=== PATIENT | male | born 1950 | race Caucasian/White ===

== ENCOUNTER 2016-04-02 07:30 | Inpatient (IN) | payer OTHER ==
--- NOTE | 2016-04-01 09:05 | HP ---
DATE OF CLINIC: 03/25/2016 PORFIRIO AMAYA : 1950 PLANNED PROCEDURE: Left Total Knee Arthroplasty DATE OF SURGERY: April 02, 2016 SURGEON: Sampson Cabello M.D. HISTORY OF PRESENT ILLNESS Porfirio Amaya is a 65 year old male. * Medication list reviewed with patient allergy list reviewed with patient. * Tried NSAIDS Aleve/Meloxcam PRN * Tried Injections 03/21/14& 03/23/15 * Has not tried Physical Therapy 65-year-old male that we have seen previously for left knee pain due to known osteoarthritis. He has had steroid injections a couple of different times most recently in March of 2015, which gave him adequate relief and allowed him to maintain his desired level of activity, but at this point he returns with a statement that he has activity limiting pain that is keeping him from being able to do both work and recreational activities. He rates the pain as bad as a 7-8/10. He states that he is now sleeping in a different room and using a walker at night just so he can get up and get to the restroom during the night and that his level of activity is just completely unacceptable. He has had occasional giving-way of the knee, but has not had any significant falls and he has had no other history of trauma. His symptoms have been around for about 2 years. After discussion and review of treatment options, both operative and non-operative, he has elected to proceed with surgery and presents today preoperatively. No changes to his past medical or surgical history. SOCIAL HISTORY Behavioral: Quit smoking. Smoking status: Former smoker. REVIEW OF SYSTEMS No recent constitutional symptoms to include fevers and chills. No recent cardiovascular symptoms to include chest pain or palpitations. No recent respiratory symptoms to include shortness of breath or recent infections. PHYSICAL FINDINGS * Vitals taken 03/25/2016 03:05 pm BP-Sitting R 121/72 mmHg Pulse Rate-Sitting 84 bpm Temp-Oral 98 F Height 68.5 in Weight 203 lbs Body Mass Index 30.4 kg/m2 Body Surface Area 2.07 m2 Pain Level 3 Ears, Nose, Throat: * ENT: normal. Lungs: * Clear to auscultation. Cardiovascular: Heart Rate and Rhythm: * Normal. Abdomen: * Normal. Neurological: Motor: * Dominant Hand = Right Hand. Patient is a well-developed, well-nourished male in no acute distress. He is awake, alert and conversant throughout the encounter. CARDIOVASCULAR: Intact peripheral pulses on bilateral lower extremities. No significant edema on inspection of bilateral lower extremities. NEUROLOGIC: Patient had intact coordinated composite motion of the bilateral lower extremities and sensation intact to light touch in all distributions of bilateral lower extremities. PSYCHIATRIC: Patient was oriented to person, place and time and displayed appropriate mood and affect during the encounter. SKIN: Exam of the skin on bilateral lower extremities showed no significant scars, lesions, rashes or masses. FOCUSED MUSCULOSKELETAL EXAM: Patient ambulates with some mild antalgia on the left side. Normal resting station of the hips, knees and ankles. His left knee shows a mild effusion. No erythema or ecchymosis. He has tenderness to palpation over the medial and lateral jointlines. His ROM is from full extension to about 120 degrees of flexion. He is stable to varus stress. He's got mild valgus pseudolaxity with a firm endpoint. He has negative anterior and posterior drawer and a negative Verna and pivot shift test. He is able to perform a SLR. He has a midline patella with negative patellar grind. He has 5/5 strength in flexion and extension at the knee. He has a warm and well perfused leg distally with intact sensation and normal resting tone. IMAGING Review of his xrays from nearly a year ago now shows tricompartmental arthrosis with extensive osteophyte formation, varus malalignment and subchondral sclerosis and some small subchondral cysts. See radiologist's interpretation for additional details. ASSESSMENT 65-year-old male with activity related tricompartmental arthrosis that is no longer responding to non-operative measures. PREVIOUS TESTS * Test: URINALYSIS Report Date: 03/12/2016 GLUCOSE 1+ PH,URINE 6.0 SPEC. GRAVITY 1.020 KETONE NEGATIVE NITRITE NEGATIVE BLOOD NEGATIVE BILIRUBIN NEGATIVE APPEARANCE CLEAR PROTEIN NEGATIVE COLOR YELLOW LEUK ESTERASE NEGATIVE UROBILINOGEN NORMAL * Test: CBC NO DIFF Report Date: 03/12/2016 WBC 5.6 10*3/mL MCV 92.0 fL RBC 4.65 10*6/uL Low MCH 31.2 pg High MCHC 33.9 g/dL RDW 12.6 % PLATELET COUNT 212 10*3/mL HCT 42.8 % HGB 14.5 g/L * Test: COMPREHENSIVE METABOLIC PANEL Report Date: 03/12/2016 ALT/SGPT 20 U/L ALBUMIN 4.6 g/dL ALB/GLOB RATIO 1.9 BUN 19 mg/dL BUN/CREAT RATIO 24 High CALCIUM 9.9 mg/dL GLUCOSE 245 mg/dL High CREATININE 0.8 mg/dL SODIUM 139 meq/L POTASSIUM 4.5 meq/L CHLORIDE 102 meq/L CARBON DIOXIDE 26 meq/L ANION GAP 16 meq/L TOT PROTEIN 7.0 g/dL GLOBULIN 2.4 g/dL BILI,TOTAL 0.6 mg/dL AST/SGOT 18 U/L ALK PHOSPHATASE 47 U/L GFR 97 High * Test: PROTHROMBIN TIME Report Date: 03/12/2016 PROTIME 9.7 s INR 0.92 * Test: PARTIAL THROMBOPLASTIN TIME Report Date: 03/12/2016 APTT 24.4 s Low * Test: MRSA SCREEN Report Date: 03/13/2016 MRSA SCREEN NEGATIVE * Test: MSSA SCREEN Report Date: 03/13/2016 MSSA SCREEN NEGATIVE FOR STAPHYLOCOCCUS AUREUS THERAPY * Patient not eligible for fall risk assessment. PLAN * Unilateral primary osteoarthritis, left knee Physical Therapy: *Other Instructions: Left total knee rehab DOS: 04/02/16 Schedule physical therapy week of 04/07/16 TBS with [facility] [place] OxyCONTIN 10 MG T12A, Take 1 tablet by mouth every12 hours for baseline pain control, 10 days, 0 refills OxyCODONE HCl 5 MG TABS, Take 1-2 tablets by mouth every 4 hours as needed for severe breakthrough pain, 14 days, 0 refills TraMADol HCl 50 MG TABS, Take 1-2 tablets by mouth every 6 hours as needed for moderate breakthrough pain, 14 days, 0 refills * Total knee arthroplasty -Left SURGICAL CONSENT We have discussed surgical options including left TKA and non-operative management. The patient was counseled in detail regarding the diagnosis, treatment options available, prognosis of each treatment option and the potential risks and complications. The risks of surgery include, but are not limited to, anesthetic , neurovascular complications, pulmonary embolism, deep vein thrombosis, wound dehiscence, failure of any or all of the discussed procedures, infection of the joint or surrounding soft tissue, need for revision surgery, chronic pain, limitations in activities of daily living, inability to return to work, and loss of normal range of motion or functional use of the extremity. There is the possibility of failure over time that may require additional operative or nonoperative treatment. The patient acknowledged that there are a number of perioperative risks not mentioned here and would still like to proceed. The patient is aware of and understands these risks, and wishes to proceed with the proposed surgical procedure and other procedures as indicated at the time of surgery. We will have the patient see their PCP for a preoperative medical risk assessment. The preoperative instructions were reviewed with the patient and all questions were answered. PB/sg
[~2016-04-02 07:30] MED LIST: CELECOXIB 200 MG CAPSULE PO ONE; CLINDAMYCIN 600 MG PREMIX 50 ML IV PRN; CLONIDINE HCL 0.1 MG/24 HR (7 DAY PATCH) TD SCH; FAMOTIDINE 20 MG TABLET PO ONE; GABAPENTIN 600 MG TABLET PO ONE; ONDANSETRON 4 MG/2ML 2 ML VIAL IV ONE; OXYCODONE HCL 10 MG TAB.SR PO ONE; TRAMADOL HCL 50 MG TABLET PO ONE
[2016-04-02] MEDS ORDERED: IV START KIT ONE (07:46)
[2016-04-02] MEDS ORDERED: SODIUM CHLORIDE 0.9% 1,000 ML ONE (07:47)
[2016-04-02] MEDS ORDERED: CLINDAMYCIN 600 MG PREMIX 50 ML IV ONE (07:47)
[2016-04-02] MEDS ORDERED: OXYCODONE HCL 10 MG TAB.SR PO ONE (07:48)
[2016-04-02] MEDS ORDERED: TRAMADOL HCL 50 MG TABLET ONE (07:48)
[2016-04-02] MEDS ORDERED: CLONIDINE HCL 0.1 MG/24 HR (7 DAY PATCH) TD ONE (07:49)
[2016-04-02] MEDS ORDERED: ONDANSETRON 4 MG/2ML 2 ML VIAL ONE ×2 (07:49→10:29)
[2016-04-02] MEDS ORDERED: FAMOTIDINE 20 MG TABLET ONE (07:49)
[2016-04-02] MEDS ORDERED: GABAPENTIN 600 MG TABLET ONE (07:49)
[2016-04-02] MEDS ORDERED: CELECOXIB 200 MG CAPSULE ONE (07:50)
[2016-04-02] MEDS ORDERED: MIDAZOLAM HCL 5 MG/5 ML VIAL ONE (08:20)
[2016-04-02] MEDS ORDERED: FENTANYL 100 MCG/2 ML VIAL ONE (08:20)
[2016-04-02] MEDS ORDERED: SPINAL PROCEDURAL TRAY 1 EACH ONE (08:22)
[2016-04-02] MEDS ORDERED: NERVE BLOCK PROCEDURAL TRAY 1 EACH ONE (08:22)
[2016-04-02] MEDS ORDERED: ROPIVACAINE 0.2% 20 ML VIAL ONE (08:22)
[2016-04-02] MEDS ORDERED: BUPIVACAINE 0.25% (MDV) 20 ML in SODIUM CHLORIDE 0.9% FLUSH 20 ML IF PRN (09:50)
[2016-04-02] MEDS ORDERED: POLYMYXIN B SULFATE 500,000 UNITS, BACITRACIN 25,000 UNITS in SODIUM CHLORIDE 3 L IRRIG... IR PRN (09:50)
[2016-04-02] MEDS ORDERED: TRANEXAMIC ACID 1,000 MG in SODIUM CHLORIDE 0.9% 100 ML IV PRN (09:50)
[2016-04-02] MEDS ORDERED: BUPIVACAINE 0.25% (MDV) 24 ML, MORPHINE SULFATE 8 MG, EPINEPHRINE 0.3 MG in SODIUM CHLO... IF PRN (09:50)
[2016-04-02] MEDS ORDERED: EPHEDRINE SULFATE UD SYR 25 MG 25 MG/5 ML SYRINGE IV ONE (10:08)
[2016-04-02] MEDS ORDERED: KETAMINE HCL UD SYRINGE 100 MG/2 ML IV ONE (10:08)
[2016-04-02] MEDS ORDERED: PROPOFOL 20 ML IV ONE ×4 (10:29→10:57)
[2016-04-02] MEDS ORDERED: PHENYLEPHRINE 10 MG/1 ML (1%) VIAL ONE (10:30)
[2016-04-02] MEDS ORDERED: HYDROMORPHONE HCL 1 MG/ML SYRINGE IV PRN (11:05)
[2016-04-02] MEDS ORDERED: NALOXONE HCL 0.4 MG/ML VIAL IV PRN (11:05)
[2016-04-02] MEDS ORDERED: FENTANYL 100 MCG/2 ML VIAL IV PRN (11:05)
[2016-04-02] MEDS ORDERED: PROMETHAZINE HCL 25 MG/ML VIAL IM PRN (11:05)
[2016-04-02] MEDS ORDERED: ATROPINE SULFATE 0.4 MG/1 ML VIAL IV PRN (11:05)
[2016-04-02] MEDS ORDERED: LACTATED RINGERS 1,000 ML IV SCH (11:15)
--- NOTE | 2016-04-02 12:02 | PCMBPN ---
Brief Post Op Note: Date of Procedure: 04/02/16 Start Time: 1030 Preoperative Diagnosis: 1. left knee osteoarthritis Postoperative Diagnosis: 1. Same Procedure: left total knee arthroplasty Surgeon: Sampson Cabello MD Assist: Rocky Rai PA-C Anesthesia: Varun Cortez Findings: as above Condition: stable to PACU Complications: none IV Fluids: 3100 mLs of LR Urine Output: 200 mLs Estimated Blood Loss: 25 mLs Tourniquet Time: 33 min at 250 mm Hg Specimens: none Implants: DePuy Attune 8PS femur, 8RP tibia, 5mm insert, 38 anatomic patella Drains: none Sampson Cabello MD
[2016-04-02] MEDS ORDERED: ON-Q PUMP/ROPIVACAINE 0.2% 450 ML ONE (12:12)
[2016-04-02] MEDS: ON-Q PUMP/ROPIVACAINE 0.2% 450 ML in PREMIX BAG 1 EACH NB PRN (12:27)
--- NOTE | 2016-04-02 12:58 | RAD ---
Exam: Two-view left knee COMPARISON: 03/20/2015 INDICATION: Postop left TKA. Findings: AP and crosstable lateral views of the left knee were obtained. There has been total left knee arthroplasty. Alignment has improved. No pericomponent fracture is identified. Skin lydia are present. IMPRESSION: Expected postoperative appearance following total left knee arthroplasty.
[2016-04-02] MEDS ORDERED: CALCIUM CARBONATE 500 MG TAB.CHEW PO PRN (13:04)
[2016-04-02] MEDS ORDERED: ONDANSETRON 4 MG/2ML 2 ML VIAL IV PRN (13:04)
[2016-04-02] MEDS ORDERED: TRAZODONE HCL 50 MG TABLET PO PRN (13:04)
[2016-04-02] MEDS ORDERED: SODIUM CHLOR 0.9% w 40mEq KCL 1,000 ML IV SCH (13:04)
[2016-04-02] MEDS ORDERED: HYDROXYZINE PAMOATE 25 MG CAPSULE PO PRN (13:04)
[2016-04-02] MEDS ORDERED: HYDROMORPHONE HCL 0.5 MG/0.5 ML SYRINGE IV PRN (13:04)
[2016-04-02] MEDS ORDERED: KETOROLAC TROMETHAMINE 30 MG/ML 1 ML VIAL IV PRN (13:04)
[2016-04-02] MEDS ORDERED: TRAMADOL HCL 50 MG TABLET PO PRN (14:00)
[2016-04-02] MEDS: OXYCODONE HCL 5 MG TABLET PO PRN (16:09)
[2016-04-02 16:24] VITALS: BMI 29.8
[2016-04-02] MEDS ORDERED: PUMP TUBING ONE (16:56)
[2016-04-02] MEDS: ACETAMINOPHEN 500 MG TABLET PO SCH ×2 (17:45→23:03)
[2016-04-02] MEDS ORDERED: NS/Potassium Chlor 20 mEq 1,000 ML IV SCH (17:45)
[2016-04-02] MEDS: CLINDAMYCIN 600 MG PREMIX 600 MG in Premix (D5W) 50 ml 1 EACH IV SCH (18:03)
[2016-04-02] MEDS ORDERED: ATORVASTATIN CALCIUM 10 MG TABLET PO SCH (20:34)
[2016-04-02] MEDS: ASCORBIC ACID 500 MG TABLET PO SCH (21:07)
[2016-04-02] MEDS: DOCUSATE SODIUM 100 MG CAPSULE PO SCH (21:07)
[2016-04-02] MEDS: OXYCODONE HCL 10 MG TAB.SR PO SCH (21:07)
[2016-04-02] MEDS: INSULIN ASPART (DOSE) 100 UNITS/1 ML SUB-Q PRN (21:11)
[2016-04-03] MEDS: CLINDAMYCIN 600 MG PREMIX 600 MG in Premix (D5W) 50 ml 1 EACH IV SCH (03:29)
[2016-04-03] MEDS: ACETAMINOPHEN 500 MG TABLET PO SCH ×3 (05:04→16:58)
[2016-04-03] MEDS: NS/Potassium Chlor 20 mEq 1,000 ML IV SCH ×2 (06:27→15:21)
[2016-04-03 07:08] LABS: HEMOGLOBIN 10.3 gm/l (14.0-18.0); MEAN CELL VOLUME 94.2 fl (80.0-94.0); MEAN CORPUSCULAR HEMOGLOBIN 31.3 pg (27.0-31.0); MEAN CORPUSCULAR HGB CONC 33.2 g/dl (33.0-37.0); RED CELL DISTRIBUTION WIDTH 12.2 % (11.5-14.5)
[2016-04-03] MEDS ORDERED: REMOVE PATCH 1 EACH UNIT TD SCH (07:30)
[2016-04-03] MEDS ORDERED: PSEUDOEPHEDRINE HCL 30 MG TABLET PO PRN (07:58)
--- NOTE | 2016-04-03 08:12 | PDOC43 ---
- Subjective Findings: POD1 Left TKA. Patient C/O of facial sinus pressure/congestion and was taking Sudafed bid prior to surgery, requesting order to take while in hospital. Subjective: Reports Pain Tolerable, Denies Chest Pain, Denies Shortness of Breath - Objective Vital Signs Temperature 97.5 F 04/03/16 04:00 Pulse Rate 62 04/03/16 04:00 Respiratory Rate 20 04/03/16 04:00 Blood Pressure 97/57 04/03/16 04:00 O2 Saturation by Pulse Oximetry 96 04/03/16 04:00 Oxygen Delivery Method Room Air Oxygen Flow Rate 0 Laboratory 04/03/16 06:10 04/03/16 06:10 04/03/16 04/03/16 04/02/16 07:21 06:10 21:05 RBC 3.29 L MCV 94.2 H MCH 31.3 H Estimated GFR 97 H POC Capillary Glucose 121 H 219 H Calcium 8.0 L Active Medication Orders Category Date Time Status Acetaminophen [Tylenol] Med 04/02/16 13:04 Active 1,000 mg PO Q6H Ascorbic Acid [Vitamin C] Med 04/02/16 21:00 Active 500 mg PO BID Aspirin (Enteric Coated) [Ecotrin] Med 04/03/16 09:00 Active 325 mg PO DAILY Atorvastatin Calcium [Lipitor] Med 04/02/16 20:34 Active 20 mg PO QPM Bisacodyl [Dulcolax] Med 04/05/16 11:58 Active 10 mg WI DAILY PRN Calcium Carbonate [Tums] Med 04/02/16 13:04 Active 1,000 - 2,000 mg PO Q2H PRN Docusate Sodium [Colace] Med 04/02/16 21:00 Active 100 mg PO BID Hydromorphone HCl [Dilaudid] Med 04/02/16 13:04 Active 0.5 mg IV Q1H PRN Hydroxyzine Pamoate [Vistaril] Med 04/02/16 13:04 Active 25 - 50 mg PO Q4H PRN Insulin Aspart (Dose) [Novolog (Dose)] Med 04/02/16 20:25 Active See Protocol SUB-Q WM/BEDTIME PRN Ketorolac Tromethamine [Toradol] Med 04/02/16 13:04 Active 30 mg IV Q6H PRN Lisinopril [Prinivil] Med 04/03/16 09:00 Active 20 mg PO DAILY Magnesium Hydroxide [Milk of Magnesia] Med 04/03/16 11:58 Active 30 ml PO DAILY PRN Multivitamins [One-A-Day] Med 04/03/16 09:00 Active 1 tab PO DAILY NS/Potassium Chlor 20 mEq 1,000 ml Med 04/03/16 04:00 Active IV 100 mls/hr Ondansetron 4 mg/2ml Vial [Zofran] Med 04/02/16 13:04 Active 4 - 6 mg IV Q6H PRN Oxycodone HCl [Roxicodone] Med 04/02/16 13:04 Active 5 - 10 mg PO Q4H PRN Oxycodone Sr [Oxycontin] Med 04/02/16 21:00 Active 10 mg PO Q12HR Pseudoephedrine HCl [Sudafed] Med 04/03/16 07:58 Ordered 30 mg PO BID PRN Remove Patch Med 04/03/16 11:58 Once 1 each TD X1 ONE Sodium Chloride 0.9% Flush [Normal Saline 10ml Flush] Med 04/02/16 13:04 Active 10 - 50 ml IV PRN PRN Sodium Chloride 0.9% Flush [Normal Saline 10ml Flush] Med 04/02/16 17:00 Active 10 ml IV Q8HR Tramadol HCl [Ultram] Med 04/02/16 14:00 Active 50 mg PO Q6H PRN Trazodone HCl [Desyrel] Med 04/02/16 13:04 Active 25 mg PO BEDTIME PRN Intake and Output 04/01/16 04/02/16 04/03/16 23:59 23:59 23:59 Intake Total 1480 2312 Output Total 200 1600 Balance 1280 712 General: Afebrile Lungs: Normal Air Movement Skin: Normal Color, Warm, Dry - Left Lower Extremity Incision: Dressing Clean/Dry/Intact, No Dressing Saturated Motor: Extensor Hallucis Longus: 5/5, Tibialis Anterior: 5/5, Gastrocnemius: 5/5 , Peroneals: 5/5 Gross Sensation to Light Touch: Present: Deep Peroneal Nerve, Superficial Peroneal Nerve - Problems (1) Status post total left knee replacement Status: Acute (2) Common cold virus Status: Acute - Additional Comments POD1 Left TKA, doing well. Denies dizziness or lightheadedness. Patient has a cold and c/o of sinus congestion and requesting Sudafed while in hospital. 1. Physical Therapy: WBAT with [facility], Mobilization, probable discharge home today if does well with PT. 2. Pain Control: Multimodal pain control as needed. 3. DVT Prophylaxis: ASA 325mg daily, mobilization. 4. Disposition: Possible discharge home today or tomorrow. 5. Medical Issues: Patient has a cold with sinus congestion treated prior to surgery with Sudafed bid, will continue while in hospital. Otherwise nothing new.
[2016-04-03] MEDS: OXYCODONE HCL 10 MG TAB.SR PO SCH (08:42)
[2016-04-03] MEDS: ASCORBIC ACID 500 MG TABLET PO SCH (08:43)
[2016-04-03] MEDS: DOCUSATE SODIUM 100 MG CAPSULE PO SCH (08:43)
[2016-04-03] MEDS: ON-Q PUMP/ROPIVACAINE 0.2% 450 ML in PREMIX BAG 1 EACH NB PRN (08:44)
[2016-04-03] MEDS ORDERED: MULTIVITAMINS 1 TAB TABLET PO SCH (09:00)
[2016-04-03] MEDS ORDERED: ASPIRIN (ENTERIC COATED) 325 MG TABLET.EC PO SCH (09:00)
[2016-04-03] MEDS ORDERED: LISINOPRIL 20 MG TABLET PO SCH (09:00)
[2016-04-03] MEDS: REMOVE PATCH 1 EACH UNIT TD ONE ×2 (10:36→13:39)
[2016-04-03] MEDS ORDERED: MAGNESIUM HYDROXIDE 30 ML UDCUP PO PRN (11:58)
[2016-04-03 15:57] VITALS: BP 93/56
--- NOTE | 2016-04-03 16:18 | PDOC5 ---
ADMIT DATE: 04/02/16 DISCHARGE DATE: 04/03/16 ADMISSION DIAGNOSES: left knee osteoarthritis PROCEDURES PERFORMED THIS HOSPITALIZATION: left total knee arthroplasty SURGEON:Sampson Cabello MD CONSULTATIONS: PT/OT/Care Mgmt/Hospitalist BRIEF HISTORY:This is a 65 year old male patient with activity-limiting left knee osteoarthritis which has failed to respond adequately to a course of nonoperative measures. After a discussion of the risks, benefits, and alternatives of ongoing therapies, patient elected to proceed with left total knee arthroplasty. The patient underwent standard preoperative clearance and education, and presented to the hospital on the scheduled date for surgery. BRIEF HOSPITAL COURSE: Patient tolerated the procedure without complication and was admitted postoperatively for observation, pain control, and rehabilitation. Patient had an uncomplicated hospital course; see daily notes for details. On POD#1 patient met all criteria for discharge and was discharged home with family assistance. Follow-up appointments for outpatient Physical Therapy and Orthopedics were provided at the time of discharge. Patient restarted preoperative medications, and received prescriptions for postoperative pain medications, a stool softener, and DVT prophylaxis. Sampson Cabello MD - Discharge Plan Additional Instructions: PROCEDURE: Left total knee arthroplasty (replacement) 1.) Dressings: may remove dressings on POD#4 and shower normally, let water run over incision and pat dry, but do not submerge or scrub incision. Cover with clean dressing and then change dressing every 2 days until completely dry. 2.) Activity: may bear weight as tolerated with assistive device as needed, brace in place at all times for first 6 weeks. Outpatient PT as previously scheduled. Daily exercises as instructed by PT. 3.) Medications: a.) Oxycontin: long-acting pain medication taken morning and evening for 10 days, no refills b.) Tramadol: as-needed pain medication for mild to moderate breakthrough pain (call for refills 3-4 days before running out) c.) Oxycodone: as-needed pain medication for severe breakthrough pain (call for refills 3-4 days before running out) d.) Aspirin: blood thinner to reduce risk of clots, 325 mg taken daily for 30 days e.) Colace: stool softener to help prevent constipation, taken twice a day as long as you are on narcotics; if you have not had a bowel movement by Thursday , get [id number] Magnesium Citrate from [facility] or [facility], and use per instructions twice a day until constipation resolves. 4.) Followup: April 14 at 9:45 AM with my PA, Rocky Rai at [facility]. Call office to confirm appt time and location. 5.) Questions: call my office with any questions or concerns. Go to ED or call 911 for any acute changes in health status or emergencies. Sampson Cabello MD Follow-Up: PT, [facility] [Other] - 04/07/16 10:00 am Sampson Cabello MD [Staff Physician] - 05/06/16 10:30 am Edward Rai PA [Physician Health Psychologist] - 04/14/16 9:45 am
[2016-04-03] MEDS: INSULIN ASPART (DOSE) 100 UNITS/1 ML SUB-Q PRN (16:34)
[2016-04-03] MEDS: OXYCODONE HCL 5 MG TABLET PO PRN (16:58)
--- NOTE | 2016-04-04 10:33 | OP ---
Samir SWAN : 1950 [id number] DATE OF SURGERY: April 02, 2016 PREOPERATIVE DIAGNOSIS: Left knee osteoarthritis. POSTOPERATIVE DIAGNOSIS: Left knee osteoarthritis. PROCEDURE PERFORMED: LEFT TOTAL KNEE ARTHROPLASTY. SURGEON: Sampson Cabello M.D. ADMINISTRATIVE UNDERWRITER: Edward Rai P.A.-C. SPECIMENS: No material was sent to the laboratory. ESTIMATED BLOOD LOSS: 25 mL. INTRAVENOUS FLUIDS: 3100 mL of crystalloid. URINE OUTPUT: 200 mL. TOURNIQUET TIME: 33 minutes at 300 mmHg. IMPLANTS: DePuy Attune size 8 posterior stabilized femur, size 8 rotating platform tibia, a 5 mm insert and a 38 mm anthropic patella. DRAINS: No drains. INDICATIONS: This is a a [id number] male with history and physical exam and radiographic findings consistent with left knee osteoarthritis. The patient has undergone a course of nonoperative measures without adequate relief of their symptoms. They desire definitive management in the form of a total knee arthroplasty. Risks, benefits and alternatives were discussed at length with the patient and they have elected to proceed. Preoperative clearances were performed and the patient was scheduled for surgery at the first available convenience. DESCRIPTION OF PROCEDURE: The patient was identified in the preoperative holding area where they were marked with indelible marker by the operating surgeon. The patient underwent ultrasound guided adductor canal block by the anesthesia provider. Patient was then taken to the operating room where they underwent a spinal anesthetic and was positioned supine on the operating room table. All bony prominences were padded and a well padded pre-calibrated nonsterile tourniquet was placed on the left upper thigh. Patient received perioperative antibiotics. The patient was prepped and draped in the usual sterile fashion for surgery. An operative time out was performed and confirmed by all members of the operative team. The leg was elevated and exsanguinated using an Esmarch bandage and the tourniquet was inflated at 300 mmHg. A standard anterior approach to the knee was utilized. Dissection was carried down to the fascia overlying the quadriceps and patellar tendons. A medial peripatellar arthrotomy was created. The infrapatellar and suprapatellar fat pads were excised along with medial and lateral menisci and the ACL and PCL. At this point the tourniquet was deflated. Retractors were placed to protect the collateral ligaments and the patella was slid laterally. The TruMatch guide for the femur was brought onto the field and pinned in place. This was exchanged for our distal femoral cut block. We confirmed our resection levels and then made the resection with an oscillating saw. The knee was hyperflexed and the Tarlow retractor was placed to deliver the tibia from under the femur. The TruMatch guide for the tibia was placed. Alignment was double checked with a set of drop rods. The guide was pinned in place and then exchanged for the proximal tibial cut guide. The resection level was again confirmed and the proximal tibial resection was made with an oscillating saw and completed with an osteotome and the proximal tibial resection piece was excised from the knee. At this point the retractors were removed and the knee was taken into extension and our extension block was checked and found to be satisfactory with a 5 mm mulugeta. We returned our attention to the femur, pinning the 4-in-[address] using the previously drilled pins from the TruMatch guide. We double checked our alignment here as well as our flexion space and we were satisfied with the position of the block. Anterior, posterior and chamfer cuts were made and all bony pieces were excised. The knee was taken into hyperflexion and posterior osteophytes were removed using an osteotome and a curette. Finally, the tibia was sized with a base plate, drilled and punched and then a trial tibia was placed. The box cut guide for the femur was pinned in place and our box cut for the posterior stabilized femoral component was made and then a trial femur was placed. The trial 6 mm insert was placed and the knee was taken through a range of motion. It was found to be stable in all planes and to have appropriate extension and flexion. The patella was everted and held with two towel clips. Its thickness was measured to 27 mm initially. It was resected back using a freehand technique to 15 mm thick and sized for a 38 mm patellar button. The peg holes were drilled and a trial patella was placed. The knee was taken through a range of motion. The patella was found to track midline with a no hands technique. At this point all trial implants were removed from the knee. The posterior capsule was inspected and it was confirmed that there were no significant bleeders. Then knee was elevated and exsanguinated using an Esmarch bandage and the tourniquet was reinflated. Cement was mixed on the back table while we performed our first posterior capsular injection and then copiously irrigated the bony surfaces with sterile saline. Our final implants were cemented in place and all excess cement was removed from the knee. The knee was held in extension with a clamp on the patella while the cement dried. A final inspection was made of the knee after the cement was dry and the tourniquet was deflated. There were no significant bleeders and no residual cement or bony bodies within the knee. The knee was once again copiously irrigated with sterile saline and then a closure was performed using #0 Quill for the capsule, #2-0 Vicryl for the subcutaneous tissues and lydia in the skin. A sterile dressing of Xeroform, fluffs, ABD's, web roll and an ARCELIA bandage was applied. The drapes were removed. The patient was awakened from anesthesia. Patient was then transferred to a stretcher and taken postoperatively to the post anesthesia care unit in stable condition. There were no observed intraoperative complications during this procedure. Job [id number] Cc: Iolakatie Lebron
[2016-04-05] MEDS ORDERED: BISACODYL 10 MG SUP PR PRN (11:58)
== END 2016-04-03 17:50 | disposition home or self-care (01) | DRG 470 ==
LOC: OR 07:30 → MS 13:37
PROVIDERS: ADMIT Orthopaedic Surgery; ATTEND Orthopaedic Surgery
PROC: 0SRD0J9 Replacement of Left Knee Joint with Synthetic Substitute, Cemented, Open Approach (ICD-10-PCS; principal; 2016-04-02)
DX: M17.12 Unilateral primary osteoarthritis, left knee (principal); Z87.891 Personal history of nicotine dependence